=== PATIENT | female | born 1935 | race Caucasian/White ===

== ENCOUNTER 2018-04-29 09:41 | Outpatient (CLI) | payer MEDICARE, OTHER | END 2018-04-29 09:42 | disposition home or self-care (01) | LOC: BICMAMMO 09:41 | PROVIDERS: ATTEND Family Medicine | DX: Z12.31 Encounter for screening mammogram for malignant neoplasm of breast (principal) | CPT/HCPCS: 77063; 77067 ==

== ENCOUNTER 2023-03-19 05:01 | Inpatient (IN) | payer MEDICARE, OTHER ==
[2023-03-19] MEDS ORDERED: Vancomycin 500 MG VIAL (PEDI) ONE (05:22)
[2023-03-19] MEDS ORDERED: Acetaminophen 500 MG TAB ONE (05:23)
[2023-03-19] MEDS ORDERED: Vancomycin HCl 125 MG/5 ML (BATCHED) UDCUP PO SCH ×2 (05:30→21:00)
[2023-03-19 06:11] LABS: ALT (SGPT) 22 U/L (8-55); AST (SGOT) 19 U/L (5-34); Albumin 2.7 g/dL (3.4-4.8); Alkaline Phosphatase 101 U/L (40-110); Anion Gap 17 mmol/L (10-20); BUN (Urea Nitrogen) 24 mg/dL (9.8-20.1); Bilirubin, Total 0.5 mg/dL (0.2-1.2); CK (CPK) 16 U/L (29-168); Calc. Creatinine Clearance 0 mL/min (70-130); Calcium 8.7 mg/dL (7.8-10.44); Carbon Dioxide 16 mmol/L (23-31); Chloride 110 mmol/L (98-107); Estimated GFR 74; Glucose 91 mg/dL (83-110); Potassium 4.6 mmol/L (3.5-5.1); Protein, Total 5.7 g/dL (5.8-8.1); Sodium 138 mmol/L (136-145)
[2023-03-19 06:22] LABS: #Eosinphils 0.2 thou/uL (0.0-0.7); #Lymphocytes 1.5 thou/uL (1.20-3.40); #Neutrophils 14.7 thou/uL (1.40-6.50); %Basophils 0.1 % (0.0-1.0); %Eosinophils 0.8 % (0.0-10.0); %Monocytes 10.7 % (0.0-10.0); %Neutrophils 80.5 % (42.0-75.0); Hemoglobin 10.2 g/dL (12.0-16.0); Mean Corpuscular HGB CONC 32.7 g/dL (32.0-36.0); Mean Corpuscular Hemoglobin 28.7 pg (27.0-31.0); Mean Corpuscular Volume 87.7 fl (78.0-98.0); Mean Platelet Volume 6.7 fL (7.4-10.4); Platelet Count 492 10x3/uL (130-400); RBC Distribution Width 15.2 % (11.5-14.5); Red Blood Cell (RBC) Count 3.54 mill/uL (4.20-5.40); White Blood Cell (WBC) Count 18.3 10x3/uL (4.8-10.8)
[2023-03-19 06:46] LABS: SARS-CoV-2 NAA Rapid Test Not Detected (NotDetected)
[2023-03-19 06:54] LABS: Bilirubin Negative (Negative); Blood, Urine Negative (Negative); Clarity Clear (Clear); Glucose, Urine (Dipstick) Normal (Negative); Ketone, Urine Trace mg/dL (Negative); Leukocyte Negative Leu/uL (Negative); Nitrite Negative (Negative); Protein, Urine (Dipstick) 20 mg/dL (Neg-Trace); Specific Gravity, Urine 1.025 (1.002-1.036); Urobilinogen Normal mg/dL (Less than 2)
[2023-03-19 09:38] LABS: Troponin I Less than 0.010 ng/mL (< 0.028)
[2023-03-19] MEDS ORDERED: Iopamidol 370 76% 100 ML VIAL ONE (10:14)
[2023-03-19] MEDS ORDERED: Ondansetron ODT 4 MG TAB PO PRN ×2 (10:46→13:54)
[2023-03-19] MEDS ORDERED: Ondansetron PF 4 MG/2 ML Vial IVP PRN ×2 (10:46→13:54)
[2023-03-19] MEDS ORDERED: Sodium Chloride 0.9% 1,000 ML IV SCH (11:00)
[2023-03-19 11:01] VITALS: BMI 30.9
[2023-03-19] MEDS ORDERED: Lactated Ringer's 1,000 ML IV SCH (13:45)
[2023-03-19] MEDS ORDERED: Electrolyte Replacement Protocol 1 EACH FS SCH (13:45)
[2023-03-19] MEDS ORDERED: Acetaminophen 325 MG TAB PO PRN (13:54)
[2023-03-19] MEDS ORDERED: Electrolyte Replacement Protocol FS PRN (14:30)
[2023-03-19] MEDS: metroNIDAZOLE 500 MG in Premix Bag 1 BAG IVPB SCH ×2 (16:01→23:48)
[2023-03-19 16:34] LABS: Troponin I Less than 0.010 ng/mL (< 0.028)
[2023-03-19] MEDS: Vancomycin HCl 125 MG/5 ML (BATCHED) UDCUP PO SCH ×2 (19:12→23:48)
[2023-03-19] MEDS ORDERED: Sodium Bicarbonate 150 MEQ in Dextrose 5% in Water 1,000 ML IV SCH (19:15)
[2023-03-19] MEDS: Atorvastatin Calcium 20 MG TAB PO SCH (20:52)
[2023-03-19] MEDS: hydrOXYzine 25 MG TAB PO SCH (20:52)
[2023-03-19] MEDS: DULoxetine 30 MG CAP PO SCH (20:52)
[2023-03-19] MEDS ORDERED: MESALAMINE 1.2 GM PO SCH (21:00)
[2023-03-19] MEDS ORDERED: Saccharomyces boulardii 250 MG CAP PO SCH (21:00)
[2023-03-19] MEDS ORDERED: Meropenem 1 GM in Sodium Chloride 0.9% 100 ML IVPB SCH (22:00)
[2023-03-20] MEDS: Vancomycin HCl 125 MG/5 ML (BATCHED) UDCUP PO SCH ×4 (05:11→23:34)
[2023-03-20] MEDS: Levothyroxine Sodium 88 MCG TAB PO SCH (05:11)
[2023-03-20] MEDS: Meropenem 1 GM in Sodium Chloride 0.9% 100 ML IVPB SCH ×2 (05:11→17:50)
[2023-03-20] MEDS: metroNIDAZOLE 500 MG in Premix Bag 1 BAG IVPB SCH ×3 (06:08→23:35)
[2023-03-20 06:30] LABS: #Eosinphils 0.2 thou/uL (0.0-0.7); #Lymphocytes 1.4 thou/uL (1.20-3.40); #Monocytes 1.5 thou/uL (0.11-0.59); #Neutrophils 11.1 thou/uL (1.40-6.50); %Basophils 0.1 % (0.0-1.0); %Eosinophils 1.3 % (0.0-10.0); %Lymphocytes 9.6 % (21.0-51.0); %Monocytes 10.5 % (0.0-10.0); %Neutrophils 78.5 % (42.0-75.0); Mean Corpuscular HGB CONC 32.5 g/dL (32.0-36.0); Mean Corpuscular Hemoglobin 28.6 pg (27.0-31.0); Mean Platelet Volume 6.6 fL (7.4-10.4); Platelet Count 450 10x3/uL (130-400); Red Blood Cell (RBC) Count 3.14 mill/uL (4.20-5.40); White Blood Cell (WBC) Count 14.2 10x3/uL (4.8-10.8)
[2023-03-20 06:40] LABS: Lactic Acid 0.8 mmol/L (0.5-2.2)
[2023-03-20 06:46] LABS: ALT (SGPT) 17 U/L (8-55); AST (SGOT) 14 U/L (5-34); Albumin 2.2 g/dL (3.4-4.8); Alkaline Phosphatase 87 U/L (40-110); Anion Gap 11 mmol/L (10-20); BUN (Urea Nitrogen) 14 mg/dL (9.8-20.1); Bilirubin, Total 0.5 mg/dL (0.2-1.2); Calc. Creatinine Clearance 63 mL/min (70-130); Calcium 7.9 mg/dL (7.8-10.44); Carbon Dioxide 21 mmol/L (23-31); Chloride 107 mmol/L (98-107); Estimated GFR 79; Globulin 2.2 g/dL (2.4-3.5); Glucose 121 mg/dL (83-110); Magnesium 1.4 mg/dL (1.6-2.6); Potassium 3.9 mmol/L (3.5-5.1); Protein, Total 4.4 g/dL (5.8-8.1); Sodium 135 mmol/L (136-145)
[2023-03-20] MEDS ORDERED: Magnesium Sulfate In Water 4 GM in Premix Bag 1 BAG IVPB SCH (08:00)
[2023-03-20] MEDS ORDERED: Meloxicam 7.5 MG TAB PO SCH (09:00)
[2023-03-20] MEDS: guaiFENesin/Codeine 200 mg/20 mg 10 ml Cup PO PRN (15:30)
[2023-03-20] MEDS: DULoxetine 30 MG CAP PO SCH (20:57)
[2023-03-20] MEDS: Atorvastatin Calcium 20 MG TAB PO SCH (20:58)
[2023-03-20] MEDS: Mesalamine DR 400 mg Capsule PO SCH (20:58)
[2023-03-20] MEDS: Saccharomyces boulardii 250 MG CAP PO SCH (20:58)
[2023-03-20] MEDS: hydrOXYzine 25 MG TAB PO SCH (21:01)
[2023-03-21] MEDS: metroNIDAZOLE 500 MG in Premix Bag 1 BAG IVPB SCH ×3 (06:22→23:05)
[2023-03-21] MEDS: Vancomycin HCl 125 MG/5 ML (BATCHED) UDCUP PO SCH ×4 (06:23→23:04)
[2023-03-21] MEDS: Meropenem 1 GM in Sodium Chloride 0.9% 100 ML IVPB SCH ×2 (06:23→17:48)
[2023-03-21] MEDS: guaiFENesin/Codeine 200 mg/20 mg 10 ml Cup PO PRN ×2 (06:23→13:45)
[2023-03-21] MEDS: Levothyroxine Sodium 88 MCG TAB PO SCH (06:23)
[2023-03-21 07:20] LABS: Anion Gap 12 mmol/L (10-20); BUN (Urea Nitrogen) 19 mg/dL (9.8-20.1); Calc. Creatinine Clearance 63 mL/min (70-130); Calcium 8.3 mg/dL (7.8-10.44); Carbon Dioxide 24 mmol/L (23-31); Chloride 105 mmol/L (98-107); Estimated GFR 79; Glucose 105 mg/dL (83-110); Sodium 137 mmol/L (136-145)
[2023-03-21 07:32] LABS: Hemoglobin 9.3 g/dL (12.0-16.0); Mean Corpuscular HGB CONC 31.6 g/dL (32.0-36.0); Mean Corpuscular Hemoglobin 27.8 pg (27.0-31.0); Mean Corpuscular Volume 88.2 fl (78.0-98.0); Platelet Count 552 10x3/uL (130-400); Red Blood Cell (RBC) Count 3.33 mill/uL (4.20-5.40); White Blood Cell (WBC) Count 10.8 10x3/uL (4.8-10.8)
[2023-03-21] MEDS ORDERED: Indapamide 1.25 MG TAB PO SCH (09:00)
[2023-03-21] MEDS ORDERED: Saccharomyces boulardii 250 MG CAP PO SCH (09:00)
[2023-03-21] MEDS: Saccharomyces boulardii 250 MG CAP PO SCH ×2 (09:26→21:27)
[2023-03-21] MEDS: Mesalamine DR 400 mg Capsule PO SCH ×2 (09:27→21:27)
[2023-03-21] MEDS: Acetaminophen/Codeine 30-300mg Tablet PO PRN ×2 (13:45→23:12)
[2023-03-21] MEDS: DULoxetine 30 MG CAP PO SCH (21:26)
[2023-03-21] MEDS: Atorvastatin Calcium 20 MG TAB PO SCH (21:26)
[2023-03-21] MEDS: hydrOXYzine 25 MG TAB PO SCH (21:26)
[2023-03-22] MEDS ORDERED: guaiFENesin/Codeine 200 mg/20 mg 10 ml Cup PO PRN (01:24)
[2023-03-22] MEDS: Levothyroxine Sodium 88 MCG TAB PO SCH (05:35)
[2023-03-22] MEDS: Meropenem 1 GM in Sodium Chloride 0.9% 100 ML IVPB SCH (05:36)
[2023-03-22] MEDS: Vancomycin HCl 125 MG/5 ML (BATCHED) UDCUP PO SCH ×2 (06:18→11:44)
[2023-03-22] MEDS ORDERED: metroNIDAZOLE 500 MG in Premix Bag 1 BAG IVPB SCH (08:00)
[2023-03-22 08:25] VITALS: BP 141/81; TEMP 98.3
[2023-03-22] MEDS: Mesalamine DR 400 mg Capsule PO SCH (09:12)
[2023-03-22] MEDS: Saccharomyces boulardii 250 MG CAP PO SCH (11:09)
== END 2023-03-22 11:57 | disposition home or self-care (01) | DRG 372 ==
LOC: ERS 05:01 → SUATTDRO 05:01 → T4-B 10:19 → OBSVTOIN 19:23
PROVIDERS: ADMIT Internal Medicine; ATTEND Internal Medicine
DX: A04.72 Enterocolitis due to Clostridium difficile, not specified as recurrent (principal); K50.90 Crohn's disease, unspecified, without complications; I10 Essential (primary) hypertension; E78.5 Hyperlipidemia, unspecified; Z20.822 Contact with and (suspected) exposure to COVID-19; E03.9 Hypothyroidism, unspecified; E86.0 Dehydration; Z66 Do not resuscitate; E78.00 Pure hypercholesterolemia, unspecified; F41.9 Anxiety disorder, unspecified; N73.9 Female pelvic inflammatory disease, unspecified; K60.4 Rectal fistula; Z88.0 Allergy status to penicillin; Z88.1 Allergy status to other antibiotic agents; Z88.2 Allergy status to sulfonamides; Z88.8 Allergy status to other drugs, medicaments and biological substances; Z79.899 Other long term (current) drug therapy; Z98.890 Other specified postprocedural states; Z90.49 Acquired absence of other specified parts of digestive tract
CPT/HCPCS: 36415; 71045; 74177; 80048; 80053; 81003; 82550; 83605; 83735; 84484; 85025; 85027; 86140; 87040; 87086; 93005; 96374; G0378; J2185; J3371; J3475; J3490; J7050; J7070; J7120; Q9967

== ENCOUNTER 2023-05-12 19:45 | Inpatient (IN) | payer MEDICARE, OTHER ==
[2023-05-12 20:58] LABS: #Monocytes 1.9 thou/uL (0.11-0.59); #Neutrophils 10.4 thou/uL (1.40-6.50); %Basophils 0.2 % (0.0-1.0); %Eosinophils 0.1 % (0.0-10.0); %Lymphocytes 9.8 % (21.0-51.0); %Monocytes 13.6 % (0.0-10.0); %Neutrophils 75.7 % (42.0-75.0); Hemoglobin 10.3 g/dL (12.0-16.0); Mean Corpuscular HGB CONC 31.6 g/dL (32.0-36.0); Mean Corpuscular Hemoglobin 27.9 pg (27.0-31.0); Mean Corpuscular Volume 88.3 fl (78.0-98.0); Platelet Count 461 10x3/uL (130-400); RBC Distribution Width 16.5 % (11.5-14.5); Red Blood Cell (RBC) Count 3.69 mill/uL (4.20-5.40); White Blood Cell (WBC) Count 13.7 10x3/uL (4.8-10.8)
[2023-05-12 21:25] LABS: ALT (SGPT) 10 U/L (8-55); AST (SGOT) 11 U/L (5-34); Albumin 3.2 g/dL (3.4-4.8); Alkaline Phosphatase 100 U/L (40-110); Anion Gap 16 mmol/L (10-20); BUN (Urea Nitrogen) 30 mg/dL (9.8-20.1); Bilirubin, Total 0.4 mg/dL (0.2-1.2); Calc. Creatinine Clearance 0 mL/min (70-130); Calcium 8.9 mg/dL (7.8-10.44); Carbon Dioxide 20 mmol/L (23-31); Chloride 101 mmol/L (98-107); Estimated GFR 70; Globulin 3.3 g/dL (2.4-3.5); Glucose 104 mg/dL (83-110); Potassium 3.9 mmol/L (3.5-5.1); Protein, Total 6.5 g/dL (5.8-8.1); Sodium 133 mmol/L (136-145)
[2023-05-13] MEDS: Vancomycin HCl 125 MG/5 ML (BATCHED) UDCUP PO SCH ×4 (00:56→18:35)
[2023-05-13] MEDS ORDERED: metroNIDAZOLE 500 MG/100 ML BAG ONE ×2 (02:33→10:16)
[2023-05-13] MEDS: Acetaminophen 325 MG TAB PO PRN ×2 (02:36→14:06)
[2023-05-13] MEDS ORDERED: Acetaminophen 325 MG TAB ONE (02:38)
[2023-05-13 03:09] LABS: Lactic Acid 1.4 mmol/L (0.5-2.2)
[2023-05-13 03:16] LABS: Anion Gap 17 mmol/L (10-20); BUN (Urea Nitrogen) 25 mg/dL (9.8-20.1); CRP (Inflammatory) 31.65 mg/dL (= or < 0.5); Calc. Creatinine Clearance 0 mL/min (70-130); Calcium 8.8 mg/dL (7.8-10.44); Carbon Dioxide 20 mmol/L (23-31); Chloride 100 mmol/L (98-107); Estimated GFR 69; Glucose 104 mg/dL (83-110); Potassium 3.7 mmol/L (3.5-5.1); Sodium 133 mmol/L (136-145)
[2023-05-13 04:35] VITALS: BMI 23.4
[2023-05-13] MEDS ORDERED: metroNIDAZOLE 500 MG in Premix Bag 1 BAG IVPB SCH (06:00)
[2023-05-13] MEDS: Levothyroxine Sodium 88 MCG TAB PO SCH (07:22)
[2023-05-13 08:35] LABS: #Basophils 0.1 thou/uL (0.0-0.2); #Eosinphils 0.1 thou/uL (0.0-0.7); #Monocytes 2.8 thou/uL (0.11-0.59); #Neutrophils 9.3 thou/uL (1.40-6.50); %Basophils 0.4 % (0.0-1.0); %Eosinophils 0.3 % (0.0-10.0); %Lymphocytes 14.3 % (21.0-51.0); %Monocytes 19.3 % (0.0-10.0); %Neutrophils 65.2 % (42.0-75.0); Hemoglobin 10.1 g/dL (12.0-16.0); Mean Corpuscular HGB CONC 30.9 g/dL (32.0-36.0); Mean Corpuscular Hemoglobin 28.1 pg (27.0-31.0); Mean Corpuscular Volume 90.8 fl (78.0-98.0); Platelet Count 439 10x3/uL (130-400); RBC Distribution Width 16.4 % (11.5-14.5); White Blood Cell (WBC) Count 14.3 10x3/uL (4.8-10.8)
[2023-05-13] MEDS ORDERED: Losartan 25 MG TAB PO SCH (09:00)
[2023-05-13] MEDS ORDERED: Indapamide 1.25 MG TAB PO SCH (09:00)
[2023-05-13 10:19] LABS: INR-International Normal Ratio 1.2
[2023-05-13 10:20] LABS: PTT 40.2 sec (22.9-36.1)
[2023-05-13] MEDS: metroNIDAZOLE 500 MG in Premix Bag 1 BAG IVPB SCH ×2 (10:20→18:35)
[2023-05-13] MEDS: Saccharomyces boulardii 250 MG CAP PO SCH (10:30)
[2023-05-13] MEDS: Mesalamine DR 400 mg Capsule PO SCH ×2 (10:30→21:52)
[2023-05-13] MEDS ORDERED: Sodium Bicarbonate 2.5 MEQ/5 ML VIAL ONE (11:54)
[2023-05-13] MEDS ORDERED: fentaNYL 50 mcg/mL 1 mL Vial ONE (11:54)
[2023-05-13] MEDS ORDERED: Electrolyte Replacement Protocol 1 EACH FS SCH (12:00)
[2023-05-13] MEDS ORDERED: Electrolyte Replacement Protocol FS PRN (12:00)
[2023-05-13] MEDS: HYDROcodone/Acetaminophen 5/325 mg Tablet PO PRN (18:34)
[2023-05-13] MEDS ORDERED: Vancomycin 1.5 GRAM/300 ML BAG 1.5 GM in Premix Bag 1 BAG IVPB SCH (20:30)
[2023-05-13] MEDS: hydrOXYzine 25 MG TAB PO SCH (21:52)
[2023-05-13] MEDS: DULoxetine 30 MG CAP PO SCH (21:53)
[2023-05-13] MEDS: Atorvastatin Calcium 20 MG TAB PO SCH (21:53)
[2023-05-14] MEDS: Vancomycin HCl 125 MG/5 ML (BATCHED) UDCUP PO SCH ×5 (00:26→23:35)
[2023-05-14] MEDS: Aztreonam 2 GM in Sodium Chloride 0.9% 100 ML IVPB SCH ×4 (00:26→21:54)
[2023-05-14] MEDS: metroNIDAZOLE 500 MG in Premix Bag 1 BAG IVPB SCH ×3 (01:46→17:41)
[2023-05-14] MEDS: Levothyroxine Sodium 88 MCG TAB PO SCH (06:15)
[2023-05-14] MEDS: HYDROcodone/Acetaminophen 5/325 mg Tablet PO PRN ×3 (06:39→21:58)
[2023-05-14 06:48] LABS: Hemoglobin 9.2 g/dL (12.0-16.0); Mean Corpuscular HGB CONC 31.7 g/dL (32.0-36.0); Mean Corpuscular Hemoglobin 27.8 pg (27.0-31.0); Mean Platelet Volume 8.9 fL (7.4-10.4); Platelet Count 474 10x3/uL (130-400); RBC Distribution Width 16.3 % (11.5-14.5); Red Blood Cell (RBC) Count 3.31 mill/uL (4.20-5.40); White Blood Cell (WBC) Count 10.9 10x3/uL (4.8-10.8)
[2023-05-14 07:08] LABS: Manual Diff?? YES; Mean Corpuscular Volume 87.6 fl (78.0-98.0)
[2023-05-14 07:09] LABS: Delete Auto Diff?? YES
[2023-05-14 07:10] LABS: ALT (SGPT) 9 U/L (8-55); AST (SGOT) 12 U/L (5-34); Albumin 2.8 g/dL (3.4-4.8); Alkaline Phosphatase 94 U/L (40-110); Anion Gap 13 mmol/L (10-20); BUN (Urea Nitrogen) 19 mg/dL (9.8-20.1); Bilirubin, Total 0.5 mg/dL (0.2-1.2); Calc. Creatinine Clearance 57 mL/min (70-130); Calcium 8.6 mg/dL (7.8-10.44); Carbon Dioxide 20 mmol/L (23-31); Chloride 104 mmol/L (98-107); Estimated GFR 83; Globulin 2.8 g/dL (2.4-3.5); Glucose 106 mg/dL (83-110); Magnesium 1.7 mg/dL (1.6-2.6); Potassium 3.4 mmol/L (3.5-5.1); Protein, Total 5.6 g/dL (5.8-8.1); Sodium 134 mmol/L (136-145)
[2023-05-14 07:47] LABS: Band 27 % (5-11); Eosinophils 1 % (0-10); Lymphocytes 6 % (21-51); Monocytes 7 % (0-10); Neutrophil 58 % (42-75); Platelet Adequacy Comment Platelets Increased; Polychromasia SLIGHT = 2-3 cells HPF (0-2); Reactive Lymphocytes 1 % (0-10); Total Cell Count 99
[2023-05-14] MEDS: Saccharomyces boulardii 250 MG CAP PO SCH (08:42)
[2023-05-14] MEDS ORDERED: Magnesium 2 GM/50 ML(in water) 2 GM in Premix Bag 1 BAG IVPB SCH (10:00)
[2023-05-14] MEDS ORDERED: Potassium Chloride 20 MEQ TAB PO SCH (10:00)
[2023-05-14] MEDS: Mesalamine DR 400 mg Capsule PO SCH ×2 (10:31→20:20)
[2023-05-14] MEDS ORDERED: Vancomycin 1 GM in Premix Bag 1 BAG IVPB SCH (20:00)
[2023-05-14] MEDS: hydrOXYzine 25 MG TAB PO SCH (20:20)
[2023-05-14] MEDS: Atorvastatin Calcium 20 MG TAB PO SCH (20:20)
[2023-05-14] MEDS: DULoxetine 30 MG CAP PO SCH (20:20)
[2023-05-14] MEDS: Acetaminophen 325 MG TAB PO PRN (23:41)
[2023-05-15] MEDS: metroNIDAZOLE 500 MG in Premix Bag 1 BAG IVPB SCH ×3 (01:49→17:50)
[2023-05-15] MEDS: Vancomycin HCl 125 MG/5 ML (BATCHED) UDCUP PO SCH ×3 (05:25→17:57)
[2023-05-15] MEDS: Aztreonam 2 GM in Sodium Chloride 0.9% 100 ML IVPB SCH ×3 (05:26→21:53)
[2023-05-15] MEDS: Levothyroxine Sodium 88 MCG TAB PO SCH (05:26)
[2023-05-15] MEDS: HYDROcodone/Acetaminophen 5/325 mg Tablet PO PRN ×4 (05:32→22:18)
[2023-05-15] MEDS: Saccharomyces boulardii 250 MG CAP PO SCH (08:06)
[2023-05-15] MEDS: Mesalamine DR 400 mg Capsule PO SCH ×2 (08:08→20:47)
[2023-05-15 19:39] LABS: Vancomycin, Trough 6.8 ug/mL
[2023-05-15] MEDS: Vancomycin HCl 750 MG in Sodium Chloride 0.9% 250 ML 250 ML IVPB SCH (20:46)
[2023-05-15] MEDS: DULoxetine 30 MG CAP PO SCH (20:47)
[2023-05-15] MEDS: Atorvastatin Calcium 20 MG TAB PO SCH (20:47)
[2023-05-15] MEDS: hydrOXYzine 25 MG TAB PO SCH (20:47)
[2023-05-15] MEDS: Acetaminophen 325 MG TAB PO PRN (20:54)
[2023-05-16] MEDS: Vancomycin HCl 125 MG/5 ML (BATCHED) UDCUP PO SCH ×4 (00:05→17:32)
[2023-05-16] MEDS: metroNIDAZOLE 500 MG in Premix Bag 1 BAG IVPB SCH ×3 (01:10→17:32)
[2023-05-16] MEDS: Acetaminophen 325 MG TAB PO PRN (02:20)
[2023-05-16] MEDS: Aztreonam 2 GM in Sodium Chloride 0.9% 100 ML IVPB SCH ×3 (05:08→21:52)
[2023-05-16] MEDS: HYDROcodone/Acetaminophen 5/325 mg Tablet PO PRN ×2 (05:10→11:43)
[2023-05-16] MEDS: Levothyroxine Sodium 88 MCG TAB PO SCH (05:10)
[2023-05-16 06:34] LABS: #Eosinphils 0.3 thou/uL (0.0-0.7); #Monocytes 1.4 thou/uL (0.11-0.59); #Neutrophils 10.9 thou/uL (1.40-6.50); %Basophils 0.3 % (0.0-1.0); %Eosinophils 1.9 % (0.0-10.0); %Lymphocytes 8.2 % (21.0-51.0); %Monocytes 10.3 % (0.0-10.0); %Neutrophils 78.2 % (42.0-75.0); Hemoglobin 8.6 g/dL (12.0-16.0); Mean Corpuscular HGB CONC 31.7 g/dL (32.0-36.0); Mean Corpuscular Hemoglobin 27.9 pg (27.0-31.0); Mean Platelet Volume 9.1 fL (7.4-10.4); Platelet Count 509 10x3/uL (130-400); RBC Distribution Width 16.2 % (11.5-14.5); Red Blood Cell (RBC) Count 3.08 mill/uL (4.20-5.40)
[2023-05-16 06:58] LABS: Anion Gap 12 mmol/L (10-20); BUN (Urea Nitrogen) 17 mg/dL (9.8-20.1); Calc. Creatinine Clearance 64 mL/min (70-130); Calcium 8.5 mg/dL (7.8-10.44); Carbon Dioxide 20 mmol/L (23-31); Chloride 105 mmol/L (98-107); Estimated GFR 87; Glucose 99 mg/dL (83-110); Potassium 3.4 mmol/L (3.5-5.1); Sodium 134 mmol/L (136-145)
[2023-05-16] MEDS ORDERED: Potassium Chloride 20 MEQ TAB PO SCH (08:00)
[2023-05-16] MEDS: Saccharomyces boulardii 250 MG CAP PO SCH (09:11)
[2023-05-16] MEDS: Vancomycin HCl 750 MG in Sodium Chloride 0.9% 250 ML 250 ML IVPB SCH ×2 (09:11→19:43)
[2023-05-16] MEDS: Mesalamine DR 400 mg Capsule PO SCH ×2 (09:12→19:44)
[2023-05-16] MEDS: traMADol HCl 50 MG TAB PO PRN ×2 (15:37→20:53)
[2023-05-16] MEDS: hydrOXYzine 25 MG TAB PO SCH (19:44)
[2023-05-16] MEDS: DULoxetine 30 MG CAP PO SCH (19:44)
[2023-05-16] MEDS: Atorvastatin Calcium 20 MG TAB PO SCH (19:44)
[2023-05-16] MEDS ORDERED: traMADol HCl 50 MG TAB PO PRN (22:03)
[2023-05-16] MEDS: Ketorolac Tromethamine 30 MG/ML VIAL IVP SCH (23:10)
[2023-05-17] MEDS: Vancomycin HCl 125 MG/5 ML (BATCHED) UDCUP PO SCH ×4 (00:30→17:41)
[2023-05-17] MEDS: metroNIDAZOLE 500 MG in Premix Bag 1 BAG IVPB SCH ×3 (02:25→17:39)
[2023-05-17] MEDS: Levothyroxine Sodium 88 MCG TAB PO SCH (05:22)
[2023-05-17] MEDS: Aztreonam 2 GM in Sodium Chloride 0.9% 100 ML IVPB SCH ×3 (05:22→21:07)
[2023-05-17] MEDS: Saccharomyces boulardii 250 MG CAP PO SCH (08:29)
[2023-05-17] MEDS: Mesalamine DR 400 mg Capsule PO SCH ×2 (08:30→20:31)
[2023-05-17 11:04] LABS: Vancomycin, Trough 9.5 ug/mL
[2023-05-17] MEDS: Vancomycin HCl 750 MG in Sodium Chloride 0.9% 250 ML 250 ML IVPB SCH ×2 (11:26→11:44)
[2023-05-17] MEDS: traMADol HCl 50 MG TAB PO SCH ×2 (12:28→17:41)
[2023-05-17] MEDS: DULoxetine 30 MG CAP PO SCH (20:31)
[2023-05-17] MEDS: Atorvastatin Calcium 20 MG TAB PO SCH (20:31)
[2023-05-17] MEDS: hydrOXYzine 25 MG TAB PO SCH (20:31)
[2023-05-17] MEDS ORDERED: Ketorolac Tromethamine 30 MG/ML VIAL IVP SCH (20:45)
[2023-05-18] MEDS: Ketorolac Tromethamine 30 MG/ML VIAL IVP SCH ×2 (00:20→22:22)
[2023-05-18] MEDS: traMADol HCl 50 MG TAB PO SCH ×4 (00:29→18:15)
[2023-05-18] MEDS: Vancomycin HCl 750 MG in Sodium Chloride 0.9% 250 ML 250 ML IVPB SCH ×2 (00:30→11:29)
[2023-05-18] MEDS: Vancomycin HCl 125 MG/5 ML (BATCHED) UDCUP PO SCH ×4 (00:30→18:15)
[2023-05-18] MEDS: metroNIDAZOLE 500 MG in Premix Bag 1 BAG IVPB SCH ×3 (02:27→18:15)
[2023-05-18] MEDS: Levothyroxine Sodium 88 MCG TAB PO SCH (05:04)
[2023-05-18] MEDS: Aztreonam 2 GM in Sodium Chloride 0.9% 100 ML IVPB SCH ×3 (05:05→21:23)
[2023-05-18] MEDS ORDERED: tiZANidine HCl 4 MG TAB PO SCH (05:15)
[2023-05-18 06:25] LABS: Hemoglobin 8.8 g/dL (12.0-16.0); Mean Corpuscular Hemoglobin 27.8 pg (27.0-31.0); Mean Corpuscular Volume 89.6 fl (78.0-98.0); Platelet Count 555 10x3/uL (130-400); RBC Distribution Width 16.4 % (11.5-14.5); Red Blood Cell (RBC) Count 3.17 mill/uL (4.20-5.40); White Blood Cell (WBC) Count 14.8 10x3/uL (4.8-10.8)
[2023-05-18 06:39] LABS: Delete Auto Diff?? YES; Manual Diff?? YES
[2023-05-18 06:57] LABS: Anion Gap 11 mmol/L (10-20); BUN (Urea Nitrogen) 17 mg/dL (9.8-20.1); Calc. Creatinine Clearance 54 mL/min (70-130); Calcium 8.7 mg/dL (7.8-10.44); Carbon Dioxide 22 mmol/L (23-31); Chloride 104 mmol/L (98-107); Estimated GFR 78; Glucose 100 mg/dL (83-110); Potassium 3.3 mmol/L (3.5-5.1); Sodium 134 mmol/L (136-145)
[2023-05-18 07:03] LABS: Band 19 % (5-11); CellaVision Operator ID lab.abc; Lymphocytes 6 % (21-51); Monocytes 5 % (0-10); Neutrophil 69 % (42-75); Platelet Adequacy Comment Platelets Increased; Polychromasia SLIGHT = 2-3 cells HPF (0-2); RBC Morphology Within Normal Limits; Total Cell Count 100
[2023-05-18] MEDS ORDERED: Potassium Chloride 20 MEQ TAB PO SCH (08:00)
[2023-05-18] MEDS: Saccharomyces boulardii 250 MG CAP PO SCH (08:50)
[2023-05-18] MEDS: Mesalamine DR 400 mg Capsule PO SCH ×2 (08:50→21:22)
[2023-05-18] MEDS: hydrOXYzine 25 MG TAB PO SCH (21:22)
[2023-05-18] MEDS: DULoxetine 30 MG CAP PO SCH (21:22)
[2023-05-18] MEDS: Atorvastatin Calcium 20 MG TAB PO SCH (21:22)
[2023-05-19] MEDS: Vancomycin HCl 125 MG/5 ML (BATCHED) UDCUP PO SCH ×4 (00:40→17:51)
[2023-05-19] MEDS: Vancomycin HCl 750 MG in Sodium Chloride 0.9% 250 ML 250 ML IVPB SCH ×2 (02:01→12:30)
[2023-05-19] MEDS: metroNIDAZOLE 500 MG in Premix Bag 1 BAG IVPB SCH ×3 (02:02→17:51)
[2023-05-19] MEDS: traMADol HCl 50 MG TAB PO SCH ×4 (02:02→17:51)
[2023-05-19] MEDS: Levothyroxine Sodium 88 MCG TAB PO SCH (06:29)
[2023-05-19] MEDS: Aztreonam 2 GM in Sodium Chloride 0.9% 100 ML IVPB SCH ×2 (06:29→14:16)
[2023-05-19 08:08] LABS: Hemoglobin 8.3 g/dL (12.0-16.0); Mean Corpuscular HGB CONC 31.4 g/dL (32.0-36.0); Mean Corpuscular Hemoglobin 27.8 pg (27.0-31.0); Mean Corpuscular Volume 88.3 fl (78.0-98.0); Mean Platelet Volume 8.9 fL (7.4-10.4); Platelet Count 517 10x3/uL (130-400); RBC Distribution Width 16.6 % (11.5-14.5); Red Blood Cell (RBC) Count 2.99 mill/uL (4.20-5.40); White Blood Cell (WBC) Count 18.1 10x3/uL (4.8-10.8)
[2023-05-19 08:15] LABS: Delete Auto Diff?? YES; Manual Diff?? YES
[2023-05-19] MEDS: Saccharomyces boulardii 250 MG CAP PO SCH (08:34)
[2023-05-19] MEDS: Mesalamine DR 400 mg Capsule PO SCH ×2 (08:34→21:28)
[2023-05-19] MEDS: Acetaminophen 325 MG TAB PO PRN (08:35)
[2023-05-19] MEDS ORDERED: Sodium Chloride 0.9% 500 ML IV SCH ×3 (08:45→11:00)
[2023-05-19 09:09] LABS: Band 52 % (5-11); Burr Cells SLIGHT = 2-5 cells HPF (0-1); Eosinophils 2 % (0-10); Hypochromia SLIGHT = 6-15 cells HPF (0-5); Large Platelets 7.8 % (0-5); Lymphocytes 1 % (21-51); Metamyelocyte 1 % (0-0); Monocytes 4 % (0-10); Neutrophil 40 % (42-75); Ovalocytes SLIGHT = 2-5 cells HPF (0-1); Platelet Adequacy Comment Platelets Increased; Polychromasia SLIGHT = 2-3 cells HPF (0-2); Target Cells SLIGHT = 2-5 cells HPF (0-1); Tear Drops SLIGHT = 2-5 cells HPF (0-1); Total Cell Count 102
[2023-05-19] MEDS ORDERED: Sodium Chloride 0.9% 1,000 ML IV SCH (11:00)
[2023-05-19] MEDS ORDERED: Iopamidol-370 76% 500 ML MDV (1 ML CHARGE) ONE (13:41)
[2023-05-19] MEDS ORDERED: Saccharomyces boulardii 250 MG CAP PO SCH (14:00)
[2023-05-19 14:37] LABS: Hemoglobin 9.1 g/dL (12.0-16.0); Mean Corpuscular HGB CONC 29.2 g/dL (32.0-36.0); Mean Corpuscular Hemoglobin 27.7 pg (27.0-31.0); Mean Platelet Volume 9.1 fL (7.4-10.4); RBC Distribution Width 16.9 % (11.5-14.5); Red Blood Cell (RBC) Count 3.28 mill/uL (4.20-5.40); White Blood Cell (WBC) Count 17.5 10x3/uL (4.8-10.8)
[2023-05-19 14:40] LABS: Mean Corpuscular Volume 95.1 fl (78.0-98.0)
[2023-05-19 14:41] LABS: Delete Auto Diff?? YES; Platelet Count 563 10x3/uL (130-400)
[2023-05-19 14:43] LABS: Manual Diff?? YES
[2023-05-19 14:53] LABS: Anisocytosis SLIGHT = 6-15 cells HPF (0-5); Band 36 % (5-11); Burr Cells MODERATE= 6-15 cells HPF (0-1); CellaVision Operator ID LAB.KB; Eosinophils 1 % (0-10); Hypochromia SLIGHT = 6-15 cells HPF (0-5); Lymphocytes 5 % (21-51); Monocytes 1 % (0-10); Myelocyte 1 % (0-0); Neutrophil 56 % (42-75); Platelet Adequacy Comment Platelets Increased; Poikilocytosis SLIGHT = 6-15 cells HPF (0-5); Polychromasia SLIGHT = 2-3 cells HPF (0-2); Smudge Cells 6.9 %; Total Cell Count 102
[2023-05-19 14:57] LABS: ALT (SGPT) 9 U/L (8-55); AST (SGOT) 19 U/L (5-34); Albumin 2.3 g/dL (3.4-4.8); Alkaline Phosphatase 83 U/L (40-110); Anion Gap 15 mmol/L (10-20); BUN (Urea Nitrogen) 22 mg/dL (9.8-20.1); Bilirubin, Total 0.3 mg/dL (0.2-1.2); Calc. Creatinine Clearance 49 mL/min (70-130); Calcium 8.2 mg/dL (7.8-10.44); Carbon Dioxide 13 mmol/L (23-31); Chloride 110 mmol/L (98-107); Estimated GFR 70; Globulin 2.6 g/dL (2.4-3.5); Glucose 134 mg/dL (83-110); Magnesium 1.8 mg/dL (1.6-2.6); Phosphorus 3.6 mg/dL (2.3-4.7); Potassium 3.8 mmol/L (3.5-5.1); Protein, Total 4.9 g/dL (5.8-8.1); Sodium 134 mmol/L (136-145)
[2023-05-19] MEDS ORDERED: Sodium Bicarbonate 2.5 MEQ/5 ML VIAL ONE (15:50)
[2023-05-19] MEDS ORDERED: D5 1/2 NS w/40 mEq KCL 1,000 ML IV SCH (17:00)
[2023-05-19] MEDS ORDERED: Potassium Chloride 20 MEQ TAB PO SCH (17:15)
[2023-05-19] MEDS ORDERED: Sodium Bicarbonate Tab 325 MG TAB PO SCH ×2 (17:15→21:00)
[2023-05-19] MEDS ORDERED: D5 1/2 NS w/20 mEq KCL 1,000 ML IV SCH (17:15)
[2023-05-19] MEDS ORDERED: Electrolyte Replacement Protocol 1 EACH FS SCH (21:00)
[2023-05-19] MEDS ORDERED: Magnesium 2 GM/50 ML(in water) 2 GM in Premix Bag 1 BAG IVPB SCH (21:00)
[2023-05-19] MEDS ORDERED: Cyanocobalamin (Vitamin B-12) 1,000 MCG TAB PO SCH (21:00)
[2023-05-19] MEDS ORDERED: Folic Acid 1 MG TAB PO SCH (21:00)
[2023-05-19] MEDS ORDERED: Multivit, Therapeutic 1 TAB PO SCH ×2 (21:00)
[2023-05-19] MEDS: DULoxetine 30 MG CAP PO SCH (21:28)
[2023-05-19] MEDS: Ketorolac Tromethamine 30 MG/ML VIAL IVP SCH (23:22)
[2023-05-20] MEDS: traMADol HCl 50 MG TAB PO SCH ×4 (00:07→17:10)
[2023-05-20] MEDS: Levothyroxine Sodium 88 MCG TAB PO SCH (05:18)
[2023-05-20] MEDS: Mesalamine DR 400 mg Capsule PO SCH (09:45)
[2023-05-20 20:27] VITALS: BP 106/60; TEMP 98
== END 2023-05-20 19:27 | disposition hospice, home (50) | DRG 872 ==
LOC: SUATTDRO 19:45 → ERS 19:45 → ERHOLD 23:38 → T4-B 05-13 13:16
PROVIDERS: ADMIT Family Medicine; ATTEND Internal Medicine
PROC: 3E03329 Introduction of Other Anti-infective into Peripheral Vein, Percutaneous Approach (ICD-10-PCS; 2023-05-12)
PROC: 0K9P30Z Drainage of Left Hip Muscle with Drainage Device, Percutaneous Approach (ICD-10-PCS; 2023-05-13)
PROC: 0K9N30Z Drainage of Right Hip Muscle with Drainage Device, Percutaneous Approach (ICD-10-PCS; 2023-05-13)
PROC: 0J9900Z Drainage of Buttock Subcutaneous Tissue and Fascia with Drainage Device, Open Approach (ICD-10-PCS; principal; 2023-05-19)
DX: A41.51 Sepsis due to Escherichia coli [E. coli] (principal); M60.08 Infective myositis, other site; K50.90 Crohn's disease, unspecified, without complications; L02.818 Cutaneous abscess of other sites; N17.9 Acute kidney failure, unspecified; A04.71 Enterocolitis due to Clostridium difficile, recurrent; A18.01 Tuberculosis of spine; L02.31 Cutaneous abscess of buttock; E87.1 Hypo-osmolality and hyponatremia; E87.20 Acidosis, unspecified; E44.0 Moderate protein-calorie malnutrition; E78.5 Hyperlipidemia, unspecified; I10 Essential (primary) hypertension; F41.9 Anxiety disorder, unspecified; E03.9 Hypothyroidism, unspecified; Z66 Do not resuscitate; K60.4 Rectal fistula; G89.4 Chronic pain syndrome; R65.20 Severe sepsis without septic shock; D53.9 Nutritional anemia, unspecified; D75.839 Thrombocytosis, unspecified; E83.42 Hypomagnesemia; Z68.23 Body mass index [BMI] 23.0-23.9, adult; Z98.890 Other specified postprocedural states; Z88.5 Allergy status to narcotic agent; Z88.1 Allergy status to other antibiotic agents; Z88.0 Allergy status to penicillin; Z88.2 Allergy status to sulfonamides; Z79.899 Other long term (current) drug therapy
CPT/HCPCS: 36415; 49060; 74177; 77002; 77012; 80048; 80053; 80202; 83605; 83735; 84100; 84443; 84484; 85025; 85610; 85730; 86140; 87040; 87070; 87077; 87186; 87205; 96365; C1729; J0457; J1650; J1885; J3010; J3370; J3370-JW; J3475; J3480; J3490; J7030; J7050; Q9967